=== PATIENT | female | born 1990 | race Caucasian/White ===

== ENCOUNTER 2017-03-09 16:02 | Emergency (ER) | payer SELFPAY ==
[~2017-03-09] VITALS: Ht 175.2 cm; Wt 63.5 kg
[2017-03-09] MEDS ORDERED: ZOVIRAX400 MG PO (16:22)
== END 2017-03-09 22:20 | disposition home or self-care (01) ==
LOC: ED 16:02
DX: B00.89 Other herpesviral infection (principal); R03.0 Elevated blood-pressure reading, without diagnosis of hypertension; F17.200 Nicotine dependence, unspecified, uncomplicated

== ENCOUNTER 2019-03-30 23:03 | Emergency (ER) | payer OTHER ==
[~2019-03-30] VITALS: Ht 177.8 cm; Wt 68.0 kg
[~2019-03-30 23:03] MED LIST: ZOVIRAX400 MG PO
[2019-03-30] MEDS ORDERED: ANTIBIOTIC28.4 GM T (23:18)
[2019-03-30] MEDS ORDERED: KEFLEX500 M1 PO (23:18)
== END 2019-03-31 00:09 | disposition home or self-care (01) ==
LOC: ED 23:03
DX: S61.211A Laceration without foreign body of left index finger without damage to nail, initial encounter (principal); Z79.899 Other long term (current) drug therapy; W26.0XXA Contact with knife, initial encounter; Y93.89 Activity, other specified; Y92.89 Other specified places as the place of occurrence of the external cause; Y99.9 Unspecified external cause status